=== PATIENT | male | born 1995 | race Caucasian/White ===

== ENCOUNTER → 2018-11-22 12:58 | Outpatient (CLI) | payer OTHER, SELFPAY ==
--- NOTE | 2018-11-22 13:06 | CT_ITS ---
STUDY: CT RIGHT FOOT REASON FOR EXAM: Fifth metatarsal fracture. TECHNIQUE: Thin section transaxial imaging of the foot was obtained, with sagittal and coronal reconstructed images. Individualized dose optimization techniques were used for this CT. COMPARISON: None. FINDINGS: Normal talus, calcaneus, and tarsal bones. Normal visualized tibiotalar, subtalar, talonavicular, calcaneocuboid, tarsal and tarsometatarsal articulations. There is a nondisplaced fracture of the proximal fifth metatarsal diaphysis approximately 2 cm distal to the proximal articular surface (sagittal reconstructions 7-10) without osseous bridging. Normal metatarsophalangeal joint of the great toe. Normal tibial and fibular sesamoid bones. Normal interphalangeal joint of the great toe. Normal phalanges of the great toe. Normal second through fifth metatarsophalangeal joints. Normal interphalangeal joints and phalanges of the lesser toes. The soft tissue structures are unremarkable. CT/Extremity Lower without Contra IMPRESSION: Nondisplaced fracture of the proximal fifth metatarsal diaphysis. Electronically Signed: Oren Babin MD at 14:01 EDT Tel , Service support ,
[2018-11-22 14:09] LABS: Absolute Lymphocyte Count 2.58 X10^3/uL (0.83-4.51); Absolute Neutrophil Count 3.2 X10^3/uL (2.0-7.7); Basophil# 0.03 X10^3/uL; Basophil% 0.5 % (0-1); Eosinophil# 0.35 X10^3/uL; Eosinophils% 5.4 % (0-5); Hematocrit 46.1 % (40-54); Hemoglobin 16.2 g/dL (13.0-16.5); Lymphocyte # 2.58 X10^3/ul (4.0); Lymphocyte % 39.8 % (19-41); Mean Corp Hgb Conc 35.1 g/dL (32-36); Mean Corpuscular Hgb 30.6 pg (27.0-32.0); Mean Corpuscular Volume 87.1 fL (80-94); Monocyte# 0.34 X10^3/uL; Monocyte% 5.2 % (0-10); NRBC Flagged by Analyzer 0 % (0-5); Neutrophil # 3.17 X10^3/uL (2.7-7.7); Neutrophil % 48.8 % (47-70); Platelet Count 314 K/mm3 (150-450); RBC Distribution Width CV 11.9 % (11.6-14.6); RBC Distribution Width SD 37.6 fl (35.1-43.9); Red Blood Count 5.29 M/mm3 (4.6-6.2); White Blood Count 6.5 K/mm3 (4.4-11.0)
[2018-11-22 14:23] LABS: Partial Thromboplast Time 28.2 Seconds (24.1-36.2); Prothrombin Time (Protime)PT. 13.2 SECONDS (11.7-14.9)
[2018-11-22 14:53] LABS: Anion Gap 6 (5-15); BUN 11 mg/dL (7-18); Calcium,Total 8.9 mg/dL (8.5-10.1); Chloride 105 mmol/L (98-107); Creatinine, Serum 0.92 mg/dL (0.70-1.30); EST Glomerular Filtration Rate 109 mL/min (>60); Est Glom Filt Rate - Afr Amer 132 mL/min (>60); Glucose 85 mg/dL (74-106); Potassium 4.3 mmol/L (3.5-5.1); Sodium Level 141 mmol/L (136-145)
== END ==
PROVIDERS: Family Provider Family Medicine; PCP Family Medicine; Referring Provider Podiatrist Foot & Ankle Surgery; Visit Provider Podiatrist Foot & Ankle Surgery
DX: Z01.818 Encounter for other preprocedural examination (principal); S92.351A Displaced fracture of fifth metatarsal bone, right foot, initial encounter for closed fracture
CPT/HCPCS: 36415; 73700; 80048; 85025; 85610; 85730

== ENCOUNTER 2018-11-29 11:55 | Day surgery (SDC) | payer OTHER, SELFPAY ==
[2018-11-29] VITALS (7 sets, daily range): BP systolic 105–136; BP diastolic 54–92; PULSE 76–101; RESP 16; TEMP 36.2–36.9; O2SAT 98–100; BMI 29.1
[2018-11-29] MEDS: Lactated Ringers 1,000 ML 100 ML IV (12:33)
[2018-11-29] MEDS: Cefazolin 2 GM in 0.9% Normal Saline 100 ML IV (13:33)
[2018-11-29] MEDS: Bupivacaine Mpf 0.5% 30 ML VIAL (13:53)
--- NOTE | 2018-11-29 13:55 | RAD_ITS ---
STUDY: X-RAY - RIGHT FOOT CLINICAL: Male, 23 years old. ORIF of the fifth metatarsal TECHNIQUE: 5 intraoperative fluoroscopic view(s) of the foot. COMPARISON: None. FINDINGS: 5 intraoperative fluoroscopic views were provided during open reduction and internal fixation of a right fifth metatarsal fracture. Correlation with the operative report is recommended. The total fluoroscopy time was 155.7 seconds. The total radiation dose is 3.36 mGy. RAD/Foot min 3 Views IMPRESSION: As above. Electronically Signed: Juan M Goldman, at 15:46 EDT Tel , Service support ,
--- NOTE | 2018-11-29 15:20 | DCINST_ITS ---
Discharge Diet: No Restrictions Discharge Activity: May Not Drive, May not drive while taking narcotic pain medications., May Not Shower - sponge bath only Weight Bearing Status: No weight bearing - to right foot Keep extremity elevated above heart level: Operative Extremity, Right Leg Additional Activity Instructions:: keep dressing to right leg clean, dry and intact. do not get dressing wet. protect dressing when bathing with cast protector or plastic bag and tape. elevate right foot above level of heart as much as possible for next 7 days. ice behind right knee 20 minutes on 20 minutes off every hour while awake for next 7 days. take medications as prescribed. No walking/standing on right foot Call your doctor if your incision/area has: Increased Pain/ Swelling Call your doctor if you observe: Fever of 101 or Higher, Coldness, Increased Pain, Numbness or Tingling, Change in Color, Shortness of breath, Chest pain, Calf discomfort Allergies/Adverse Reactions: Allergies No Known Allergies Allergy (Verified 11/29/18 12:19) Medications to take at Discharge No Known/Unobtainable [No Known Home Medications] 02/15/16 Primary Care Physician: Emi Chilel MD [Primary Care Provider] - Test Results: Test results from this visit will be discussed in further detail at your follow- up appointment, if applicable. Please Follow Up With: Terry Negron DPM - in one week as per instructed on discharge sheet
--- NOTE | 2018-11-29 15:25 | PCM.OPRPT ---
Problem List (1) Fracture of fifth metatarsal bone of right foot Status: Acute Qualifiers: Encounter type: initial encounter Fracture type: closed Fracture alignment: nondisplaced Qualified Code(s): S92.354A - Nondisplaced fracture of fifth metatarsal bone, right foot, initial encounter for closed fracture Report of Operation Date of Procedure: 11/29/18 Pre-Operative Diagnosis: Right foot fifth metatarsal fracture, closed, nondisplaced. Right foot [place] fracture Post-Operative Diagnosis: Same as preoperative Surgery/Procedure Performed:: Right foot fifth metatarsal open reduction with internal fixation. Description of Surgical Findings:: Consistent with diagnosis. Adequate reduction achieved and held with internal fixation. collections professional: Taylor Rodríguez Type of Anesthesia:: General Anesthesiologist: Doroteo Napoles Specimen's removed: None Drains: None Estimated Blood Loss (mL): 5mL Description of Procedure: Procedure: Open reduction with internal fixation fifth metatarsal right foot Pathology: None Anesthesia: General with a right ankle block consisting of 15 cc of 0.5% Marcaine plain. Hemostasis: Pneumatic calf tourniquet placed to level of the right calf at 250 mmHg for 58 minutes Estimated blood loss: 5 mL Materials: 1.) [place] 4.0 x 46 mm partially-threaded and cannulated screw. 2.) 3-0 Vicryl. 3.) 3-0 nylon. Injectables: 10 mL of 0.5% Marcaine plain Complications: None Condition: Stable Before the patient was brought into the operating room all the risks, benefits, possible outcomes, and possible complications of the procedure were discussed with the patient. All the patient's questions were answered to his satisfaction and all of his concerns were addressed. No guarantees were made to the outcome of the procedure. The patient understood all aspects of the procedure and consent was then signed by the patient. Patient was then brought to the operating room and placed on the operating table in the supine position. After a timeout, under general anesthesia, a well-padded pneumatic calf tourniquet was placed at the level of the right calf. The right foot ankle leg were then scrubbed prepped and draped in the usual sterile manner. At this time 15 mL of 0.5% Marcaine plain was distributed in an ankle block fashion to the right ankle. At this time radiographic evaluation was used to determine the base, lateral, and medial aspects of the fifth metatarsal of the right foot. These were then marked on the patient. Once adequate positioning of the metatarsal was achieved, the right lower extremity was elevated and exsanguinated via Esmarch and inflation of the pneumatic calf tourniquet was performed to 250 mmHg. Attention was then directed to the proximal lateral aspect of the base of the fifth metatarsal of the right foot. At this time live radiographic evaluation was used to drill the K wire through the base of the fifth metatarsal into the medullary canal past the fracture fragment of the fifth metatarsal. Multiple radiographic views were employed to make sure that the K wire was positioned within the fifth metatarsal. Once adequate positioning of the K wire was performed, a 15 blade was used to perform an incision at the level of the K wire approximate 1.5 cm in length. This was performed in a transverse fashion. Blunt dissection was continued down deep to the level of the base of the fifth metatarsal. At this time the periosteum was bluntly dissected off. A cannulated drill was used to perform drilling of the fifth metatarsal and a cannulated tap was used to tap the fifth metatarsal. When adequate preparation of the fifth metatarsal was performed, a [place] 4.0 x 46 mm cannulated partially-threaded screw was placed over the K wire and inserted the fifth metatarsal in standard AO fixation. Live radiographic evaluation was performed during insertion of the screw. Of note as the screw was being inserted was the compression of the fracture fragments. Furthermore no shifting any of the fragments occurred during insertion of the screw. Once the screw was fully inserted the K wire was removed in its entirety. Radiographic evaluation was performed and the fifth metatarsal fracture was noted to be reduced back into anatomical alignment from preoperative assessment. The fracture fragments were in line and were not dislocated. The surgical site was then irrigated with copious amounts of normal sterile saline. The subcutaneous tissue was reapproximated coapted utilizing 3-0 Vicryl. The skin was approximated coapted using 3-0 nylon in horizontal mattress and simple fashion. Next, 10 mL of 0.5 % Marcaine plain was distributed in a lateral ankle block fashion to the right ankle. At this time the surgical site was then dressed with Betadine soaked gauze and a dry sterile dressings using a 4 x 4 gauze wrapped with Kerlix. At this time the pneumatic thigh tourniquet was then released and a prompt hyperemic response noted to the entirety of the right lower extremity. Cast padding was wrapped in the metatarsal heads extending proximally to a level just distal to the tibial tuberosity. A posterior splint was fashioned to the right lower extremity and was adhered to the right lower extremity utilizing Campos bandages. The foot and ankle were then held in a neutral position as the posterior splint dried. Patient tolerated anesthesia and the procedure well and was transferred to the PACU with vital signs stable and neurovascular status intact to the right lower extremity. After a period of postoperative monitoring the patient be discharged home with written and oral instructions for wound care and follow-up. Grafts/Implants Used: Pieter 4.0 x 46 mm cannulated/partially-threaded screw, vicryl, nylon - Complications None - Admit VTE Documentation VTE Present on Admission: No
--- NOTE | 2018-11-29 16:05 | RAD_ITS ---
STUDY: X-RAY - RIGHT FOOT CLINICAL: Male, 23 years old. Postop TECHNIQUE: 3 view(s) of the foot. COMPARISON: CT dated 11/22/2018. FINDINGS: There are postsurgical changes from open reduction and internal fixation of the fifth metatarsal. There is an orthopedic screw spanning a fracture of the proximal aspect of the right fifth phalanx. The hardware is intact and alignment is satisfactory. There are no additional fractures. There are no significant degenerative changes. There are no radiodense foreign bodies. RAD/Foot min 3 Views IMPRESSION: Status post open reduction and internal fixation of a right fifth metatarsal fracture with intact hardware in satisfactory alignment. Electronically Signed: Juan M Goldman, at 16:35 EDT Tel , Service support ,
== END 2018-11-29 16:33 | disposition home or self-care (01) ==
LOC: SDC 11:56 → AC 11:57
PROVIDERS: Family Provider Family Medicine; PCP Family Medicine; Referring Provider Podiatrist Foot & Ankle Surgery; Visit Provider Podiatrist Foot & Ankle Surgery
PROC: (CPT 28485; principal; 2018-11-29 13:15)
DX: S92.354A Nondisplaced fracture of fifth metatarsal bone, right foot, initial encounter for closed fracture (principal); V89.9XXA Person injured in unspecified vehicle accident, initial encounter; Y93.9 Activity, unspecified; Y92.89 Other specified places as the place of occurrence of the external cause; Y99.0 Civilian activity done for income or pay; E66.3 Overweight; Z68.29 Body mass index [BMI] 29.0-29.9, adult
CPT/HCPCS: 28485; 73630; 76000; C1713; J7120; J2405

== ENCOUNTER → 2019-12-15 | Outpatient (CLI) | payer OTHER, SELFPAY ==
[2018-11-29 12:24] VITALS: BMI 29.1
== END | disposition home or self-care (01) ==
LOC: LABSPEC 12-19 14:41
PROVIDERS: PCP Family Medicine; Referring Provider Family Medicine; Visit Provider Family Medicine
DX: Z20.828 Contact with and (suspected) exposure to other viral communicable diseases (principal)
CPT/HCPCS: 87635; C9803; U0003